=== PATIENT | male | born 1950 | race Caucasian/White ===

== ENCOUNTER 2018-02-02 08:21 | Emergency (ER) | payer MEDICARE, BC ==
[~2018-02-02] VITALS: Ht 177.8 cm; Wt 67.1 kg
[2018-02-02] MEDS ORDERED: LEVO25TA9 PO (08:27)
[2018-02-02] MEDS ORDERED: THIAMINE HCL 200 MG/2 ML VIAL ONE (08:58)
[2018-02-02] MEDS ORDERED: ONDANSETRON 4 MG/2 ML VIAL ONE (08:58)
[2018-02-02] MEDS ORDERED: CHLORDIAZEPOXIDE HCL 25 MG CAPSULE ONE (08:58)
[2018-02-02] MEDS ORDERED: LORAZEPAM 2 MG/1 ML VIAL ONE (08:58)
[2018-02-02] MEDS ORDERED: CHLORDIAZEPOXIDE HCL 25 MG CAPSULE PO ONE (09:00)
[2018-02-02] MEDS ORDERED: THIAMINE HCL 200 MG/2 ML VIAL IV ONE (09:00)
[2018-02-02] MEDS ORDERED: IV NORMAL SALINE 1000 ML BAG IV ONE ×2 (09:00)
[2018-02-02] MEDS ORDERED: LORAZEPAM 2 MG/1 ML VIAL IV ONE (09:00)
[2018-02-02] MEDS ORDERED: ONDANSETRON 4 MG/2 ML VIAL IV ONE (09:00)
[2018-02-02 09:07] LABS: BASOPHILS # (AUTO) 0.1 K/uL (0.0-8.0); BASOPHILS % (AUTO) 1.2 % (0.0-2.0); EOSINOPHILS # (AUTO) 0.1 K/uL (0.0-0.7); EOSINOPHILS % (AUTO) 1.6 % (0.0-7.0); HEMATOCRIT 42.3 % (36.7-47.1); HEMOGLOBIN 14.8 g/dL (12.5-16.3); LYMPHOCYTES # (AUTO) 1.4 K/uL (20.0-40.0); LYMPHOCYTES % (AUTO) 27.2 % (20.5-51.5); MEAN CORPUSCULAR HEMOGLOBIN 32.7 uug (23.8-33.4); MEAN CORPUSCULAR HGB CONC 35 g/dL (32.5-36.3); MEAN CORPUSCULAR VOLUME 93.8 fL (73.0-96.2); MONOCYTES # (AUTO) 0.5 K/uL (2.0-10.0); MONOCYTES % (AUTO) 9.5 % (0.0-11.0); NEUTROPHILS % (AUTO) 60.5 % (38.5-71.5); PLATELET COUNT (AUTO) 255 K/uL (152-348); RED BLOOD CELL COUNT(AUTO) 4.51 MIL/uL (4.06-5.63)
[2018-02-02 09:12] LABS: CARBON DIOXIDE 27 mmol/L (21-32); CHLORIDE 102 mmol/L (98-107); CREATININE 0.8 mg/dL (0.6-1.3); GLUCOSE 86 mg/dL (74-106); POTASSIUM 3.5 mmol/L (3.5-5.1); UREA NITROGEN, BLOOD 12 mg/dL (7-18)
[2018-02-02 09:13] LABS: ETHANOL < 3 MG/DL (0-0)
[2018-02-02 09:25] LABS: ALANINE AMINOTRANSFERASE 53 U/L (16-63); ALKALINE PHOSPHATASE 97 U/L (50-136); ASPARTATE AMINOTRANSFERASE 55 U/L (15-37); BILIRUBIN,DIRECT 0.2 mg/dL (0.0-0.2); BILIRUBIN,TOTAL 0.7 mg/dL (0.2-1.0); TOTAL PROTEIN, SERUM 7.8 g/dL (6.4-8.2)
[2018-02-02 09:26] LABS: ACETAMINOPHEN < 2.0 ug/mL (10-30)
--- NOTE | 2018-02-02 09:29 | NUR ---
PT MEDICALLY CLEARED. PT SAYS FEELS BETTER.
--- NOTE | 2018-02-02 09:30 | NUR ---
CALLED [facility] PER PT REQUEST FOR ACUTE DETOX.
[2018-02-02 09:46] LABS: *BILIRUBIN,URIN 1+ (NEGATIVE); *BLOOD, URINE Trace-lysed (NEGATIVE); *CLARITY,URINE CLEAR (CLEAR); *KETONES,URINE TRACE (NEGATIVE); *PROTEIN,URINE NEGATIVE (NEGATIVE); *UROBILINOGEN,URINE 0.2 E.U./dl (NORMAL); LEUKOCYTE ESTERASE ,URINE NEGATIVE (NEGATIVE); NITRITE, URINE NEGATIVE (NEGATIVE); UGLUCOSE NEGATIVE (NEGATIVE)
[2018-02-02 09:47] LABS: *COLOR,URINE AMBER (YELLOW)
[2018-02-02 09:54] LABS: BACTERIA,URINE FEW /HPF (NONE SEEN); SQUAMOUS EPITHELIAL CELL,UR MANY /HPF (NONE SEEN); WBC,URINE 0-3 /HPF (0-3)
[2018-02-02 09:55] LABS: *AMPHETAMINE, URINE NEGATIVE (NEGATIVE); *BARBITURATE, URINE NEGATIVE (NEGATIVE); *CANNABINOID, URINE NEGATIVE (NEGATIVE); *COCCAINE, URINE NEGATIVE (NEGATIVE); *OPIATE, URINE NEGATIVE (NEGATIVE); *PHENCYCLIDINE SCREEN,URINE NEGATIVE (NEGATIVE); SPERM,URINE PRESENT /HPF (NONE SEEN)
--- NOTE | 2018-02-02 10:50 | NUR ---
PT RESTING, NO SIGN OF DISTRESS,
--- NOTE | 2018-02-02 12:00 | NUR ---
CALLED TO [facility] INTAKE FOR FOLLOW UP, NO DECISION MADE YET FROM [facility].
--- NOTE | 2018-02-02 12:35 | NUR ---
Patient discharged to home in stable conditon. Written and verbal after care instructions given. Patient verbalizes understanding of instructions.PT DECIDED TO LEAVE ABND NOT WAIT FOR [facility]. PT IS GOING TO [facility] HE CAME FROM. PT IS NOT DRIVING, WILL CALL FRIEND TO COME AND PICKUP THE PT. PT SAYS FEELS "WAY BETTER". NOT SHAKING ANY MORE, PO CHALLLENGED, TOLERATED WELL.NO SIGN OF DISTRESS.
[2018-02-02 12:42] VITALS: BP 132/81
== END 2018-02-02 12:44 | disposition home or self-care (01) ==
LOC: ER 08:21
DX: F10.239 Alcohol dependence with withdrawal, unspecified (principal); F10.10 Alcohol abuse, uncomplicated; E03.9 Hypothyroidism, unspecified
CPT/HCPCS: 36415; 80048; 80076; 80307; 81001; 85025; 96374; 96375; 99284; A4663; G0480 ×2; G0481; J2060; J2405; J3411; J7030 ×2

== ENCOUNTER 2018-02-07 23:21 | Emergency (ER) | payer MEDICARE, BC ==
[~2018-02-07] VITALS: Ht 177.8 cm; Wt 67.6 kg
[~2018-02-07 23:21] MED LIST: LEVO25TA9 PO
--- NOTE | 2018-02-07 23:44 | NUR ---
PT A/OX4, RESPONSIVE TO VERBAL AND TACTILE STIMULI. PT C/O EPIGASTRIC ABD PAIN THAT STARTED 3 HOURS AGO, NO PROVOKING FACTOR, SHARP IN QUALITY, RADIATES TO ALL 4 QUADRANTS, 9/10, CONSTANT. ABD NON-DISTENDED IN APPEARANCE, BOWEL SOUNDS ACTIVE IN ALL QUADRANTS, SOFT TO TOUCH. LAST BM WAS THIS MORNING. NO C/P, SOB, N/V/D, DIZZINESS, HEADACHE. ER MD AT BEDSIDE.
[2018-02-07] MEDS ORDERED: ONDANSETRON 4 MG/2 ML VIAL ONE (23:53)
[2018-02-07] MEDS ORDERED: PANTOPRAZOLE SODIUM 40 MG VIAL ONE (23:53)
[2018-02-07] MEDS ORDERED: HYDROMORPHONE 1 MG/1 ML DISP.SYRIN ONE (23:53)
[2018-02-08] MEDS ORDERED: ONDANSETRON 4 MG/2 ML VIAL IV ONE
[2018-02-08] MEDS ORDERED: HYDROMORPHONE 1 MG/1 ML DISP.SYRIN IV ONE
[2018-02-08] MEDS ORDERED: IV NORMAL SALINE 1000 ML BAG IV ONE
[2018-02-08] MEDS ORDERED: PANTOPRAZOLE SODIUM IV 40 MG in IV DEXTROSE 5% 100 ML IV ONE ×2
[2018-02-08 00:29] LABS: BASOPHILS % (AUTO) 0.3 % (0.0-2.0); EOSINOPHILS # (AUTO) 0.3 K/uL (0.0-0.7); EOSINOPHILS % (AUTO) 2.2 % (0.0-7.0); HEMOGLOBIN 13.2 g/dL (12.5-16.3); LYMPHOCYTES # (AUTO) 1.9 K/uL (20.0-40.0); LYMPHOCYTES % (AUTO) 13.2 % (20.5-51.5); MEAN CORPUSCULAR HEMOGLOBIN 31.8 uug (23.8-33.4); MEAN CORPUSCULAR HGB CONC 34 g/dL (32.5-36.3); MEAN CORPUSCULAR VOLUME 94.1 fL (73.0-96.2); MONOCYTES # (AUTO) 1.3 K/uL (2.0-10.0); MONOCYTES % (AUTO) 8.6 % (0.0-11.0); NEUTROPHILS # (AUTO) 11.1 K/uL (1.8-8.9); NEUTROPHILS % (AUTO) 75.7 % (38.5-71.5); PLATELET COUNT (AUTO) 178 K/uL (152-348); RED BLOOD CELL COUNT(AUTO) 4.15 MIL/uL (4.06-5.63); WHITE BLOOD COUNT (AUTO) 14.6 K/uL (3.6-10.2)
[2018-02-08 00:34] LABS: POTASSIUM 3.8 mmol/L (3.5-5.1)
[2018-02-08 00:40] LABS: BILIRUBIN,DIRECT 0.1 mg/dL (0.0-0.2); BILIRUBIN,TOTAL 0.2 mg/dL (0.2-1.0); TOTAL PROTEIN, SERUM 7.1 g/dL (6.4-8.2)
--- NOTE | 2018-02-08 01:11 | NUR ---
[facility] AT BEDSIDE FOR PT UPDATE.
--- NOTE | 2018-02-08 01:28 | NUR ---
Patient discharged to home in stable conditon. Written and verbal after care instructions given. Patient verbalizes understanding of instructions. PT D/C W/ PRESCRIPTION. ALL BELONGINGS W/ PT. PT SELF-AMBULATED WITHOUT DIFFICULTY. PT WILL BE DRIVEN BACK TO [facility] BY [facility] MEMBER IN PRIVATE VEHICLE.
[2018-02-08 01:30] VITALS: BP 143/85
--- NOTE | 2018-02-08 01:33 | NUR ---
20 G IV ACCESS IN L FOREARM REMOVED PRIOR TO D/C. IN[facility] INTACT.
== END 2018-02-08 01:34 | disposition home or self-care (01) ==
LOC: ER 23:26
DX: K86.1 Other chronic pancreatitis (principal); E03.9 Hypothyroidism, unspecified
CPT/HCPCS: 36415; 80048; 80076; 83690; 84484; 85025; 93005; 96365; 96375; 99285; A4663; C9113; J1170; J2405; J7030; J7060; 70030-TC